=== PATIENT | female | born 1975 | race Caucasian/White ===

== ENCOUNTER 2022-05-30 18:54 | Emergency (ER) | payer MEDICAID ==
[~2022-05-30] VITALS: Ht 160 cm; Wt 65.8 kg
[2022-05-30 19:05] VITALS: BP 146/87
[2022-05-30 19:30] LABS: BASOPHILS % (AUTO) 0.4 % (0.0-2.0); EOSINOPHILS # (AUTO) 0.1 K/uL (0-0.4); EOSINOPHILS % (AUTO) 0.7 % (0.0-4.0); HEMOGLOBIN 13.1 g/dL (12.0-16.0); LYMPHOCYTES # (AUTO) 1.3 K/uL (2.5-16.5); LYMPHOCYTES % (AUTO) 13.8 % (20.5-51.1); MEAN CORPUSCULAR HEMOGLOBIN 29 pg (27-31); MEAN CORPUSCULAR HGB CONC 34 g/dL (33-37); MEAN CORPUSCULAR VOLUME 85.6 fL (80-94); MONOCYTES # (AUTO) 0.5 K/uL (0.8-1.0); MONOCYTES % (AUTO) 5.7 % (1.7-9.3); NEUTROPHILS # (AUTO) 7.5 K/uL (1.8-7.7); NEUTROPHILS % (AUTO) 79.4 % (42.2-75.2); PLATELET COUNT (AUTO) 320 K/uL (140-450); RED BLOOD CELL COUNT(AUTO) 4.56 MIL/uL (4.20-5.40); WHITE BLOOD COUNT (AUTO) 9.5 K/uL (4.8-10.8)
[2022-05-30 19:36] LABS: BILIRUBIN,URINE NEGATIVE (NEGATIVE); BLOOD, URINE 3+ (NEGATIVE); COLOR,URINE YELLOW (YELLOW); LEUKOCYTE ESTERASE ,URINE TRACE (NEGATIVE); NITRITE, URINE NEGATIVE (NEGATIVE); UGLUCOSE NEGATIVE (NEGATIVE)
[2022-05-30 19:52] LABS: APPEARANCE,URINE HAZY (CLEAR)
[2022-05-30 20:08] LABS: ALBUMIN 3.9 g/dL (3.4-5.0); ANION GAP 10.8 (8-16); CARBON DIOXIDE 29.9 mmol/L (21-32); CREATININE 0.7 mg/dL (0.6-1.3); POTASSIUM 3.7 mmol/L (3.5-5.1)
[2022-05-30] MEDS ORDERED: HYDROcodone/APAP 5/325 MG 1 TAB TAB PO ONE (20:25)
[2022-05-30] MEDS ORDERED: ONDANSETRON 4 MG ODT PO ONE (20:25)
[2022-05-30] MEDS ORDERED: ALUMINUM HYD/MAG/SIMETHICONE 30 ML UDC PO ONE (20:25)
[2022-05-30 20:33] LABS: TOTAL BILIRUBIN 0.8 mg/dL (0.0-1.0)
--- NOTE | 2022-05-30 21:33 | NUR ---
PT TO BED #4
--- NOTE | 2022-05-30 21:43 | NUR ---
46/F WALKED IN C/O RUQ ABD PAIN ACCOMPANIED BY NAUSEA AND VOMITING ONSET 12 PM TODAY. DENIES BLOOD IN STOOL OR VOMIT. DENIES DIARRHEA. AFEBRILE AT TRIAGE. URINE COLLECTED. pt is [place]ian speaker. ambulatory
[2022-05-30] MEDS ORDERED: ALUMINUM HYD/MAG/SIMETHICONE 30 ML UDC ONE (21:53)
[2022-05-30] MEDS ORDERED: HYDROcodone/APAP 5/325 MG 1 TAB TAB ONE (21:55)
[2022-05-30] MEDS ORDERED: ONDANSETRON 4 MG ODT ONE (21:55)
[2022-05-31] MEDS ORDERED: ACET-8905 PO (00:05)
[2022-05-31 00:35] VITALS: BP 146/87
--- NOTE | 2022-05-31 00:35 | NUR ---
Patient discharged with v/s stable. Written and verbal after care instructions given and explained to parent/guardian. Parent/Guardian verbalized understanding. Ambulatorysteady gait. All questions addressed prior to discharge. Advised to follow up with PMD. PT IS AMBULATORY and left with her belonigings
== END 2022-05-31 00:35 | disposition home or self-care (01) ==
LOC: MED 18:54
DX: K80.20 Calculus of gallbladder without cholecystitis without obstruction (principal); R74.01 Elevation of levels of liver transaminase levels; Z79.891 Long term (current) use of opiate analgesic; Z88.0 Allergy status to penicillin
CPT/HCPCS: 36415; 76705; 80053; 81001; 81025; 83690; 85025; 99284; Q0092; Q0162